=== PATIENT | female | born 1950 | race Caucasian/White ===

== ENCOUNTER 2017-01-27 14:10 | Inpatient (IN) | payer MEDICARE, OTHER ==
[2017-01-27 15:44] VITALS: BP 136/62; BMI 22.9
[2017-01-27] MEDS ORDERED: FLOVENT HFA 11012 GM INH (16:48)
[2017-01-27] MEDS ORDERED: AMBIEN10 MG PO (16:48)
[2017-01-27] MEDS ORDERED: DURAGESIC1 PATCH .7 TRANSDERM (16:49)
[2017-01-27] MEDS ORDERED: PREDNISONE20 MG PO (16:50)
[2017-01-27] MEDS ORDERED: EMLA CREAM 30 G30 G1 TOPICAL (16:53)
[2017-01-27] MEDS ORDERED: ONCOLOGY MOUTHWA5 ML PO (16:55)
[2017-01-27] MEDS ORDERED: PROAIR HFA8.5 GM INH (16:56)
[2017-01-27] MEDS ORDERED: CARAFATE1 G/10 ML PO (16:57)
[2017-01-27] MEDS ORDERED: HYDROCODONE-APA1 TAB PO (16:57)
[2017-01-27] MEDS ORDERED: PLAVIX75 MG PO (16:58)
[2017-01-27] MEDS ORDERED: CELEXA20 MG PO (16:58)
[2017-01-27] MEDS ORDERED: SINGULAIR10 MG PO (16:59)
[2017-01-27] MEDS ORDERED: ALBUTEROL2.5 MG/3 M INH (17:00)
[2017-01-27] MEDS ORDERED: OMEPRAZOLE20 M1 PO (17:00)
[2017-01-27] MEDS ORDERED: CRESTOR20 MG PO (17:01)
[2017-01-27] MEDS ORDERED: BAYER CHEWABLE81 MG PO (17:01)
[2017-01-27] MEDS ORDERED: NORVASC5 MG PO (17:01)
[2017-01-27] MEDS ORDERED: SPIRIVA18 MCG INH (17:03)
[2017-01-27] MEDS ORDERED: FLINTSTONE1 TAB.CHEW PO (17:03)
--- NOTE | 2017-01-27 17:20 | NUR ---
PATIENT IS ADMITTED TO [facility]IDENT[facility] SHE ARRIVES VIA AMBULANCE WITH TWO EMS STAFF. APPARENTLY PATIENT HAD TO HAVE A NAILING OF HER RIGHT HUMURUS ON THE December AND WHEN SHE WAS OUT OF SURGERY THE STAFF HAD TO QUESTION HER ABOUT DEPRESSION AND SUICIDE AFTER THE M.D. 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 SHE THEN SAID SHE WANTED TO KILL HERSELF BY WAY OF TAKING PILLS AND IF THAT IS NOT AVAILABLE THEN SHE WOULD TAKE A KNIFE AND CUT HERSELF. PATIENT DOES RELAY THIS TO ME, BUT SHE SAYS "I WOULD NEVER DO IT, I WAS UPSET AND DISTRAUGHT BECAUSE I ASKED THE DR. YOU'RE KIDDING ME" AND SHE SAYS THE DR. SMILED AND WALKED OUT THE DOOR. PATIENT DOES HAVE A SHOULDER AIR STRIP AND A SLING TO THE RIGHT ARM. SHE ALSO HAS A PORT TO LEFT UPPER CHEST. SHE HAS SOME FAINT BRUISES TO HER LEFT OUTER CALF, BUT SHE IS TAKING PLAVIX AND ASA AND SHE SAYS SHE BRUISES WITH THE LEAST TOUCH. PATIENT'S SPOUSE IS HERE AND HE IS ATTENTIVE AND KIND, PATIENT DID ASK HIM TO LEAVE WHEN THE SUICIDE QUESTIONS DID COME UP, BUT SHE SAYS SHE DENIES S.I. AND SHE SAYS SHE CONTRACTS FOR NO SELF HARM AND SHE WANTS TO HURRY UP AND GET OUT OF HERE TO GET HER TREATMENTS STARTED. PATIENT DOES ADMIT TO GETTING IRRITABLE AND ANGRY EASILY AT HER SPOUSE. SHE WANTS TO ASK THE MEDICAL DR. ABOUT TAKING A FLU INJECTION AND IF SHE SHOULD CONTINUE HER ALLERGY INJECTIONS WHILE GOING THROUGH RADIATION AND OR CHEMO.
[2017-01-27 19:52] VITALS: BP 133/58
--- NOTE | 2017-01-27 23:38 | NUR ---
B) States does not really relate to most of the peers here as many are very confused. Is oriented to person, place, time and situation. Did express sadness over learning of her cancer diagnosis but has had time to let the news sink in now. Continues to wear a right arm sling post recent shoulder surgery. States had been waiting all day for pain medication so the pain level got up to 10/10. Was given Ativan 0.5mg PRN and [place] tab PRN @2118, with good effect, went down to 4/10 by 2199. Refused to change the Fentanyl patch, states the first 24 hours was okay but then she felt it was too strong so insisted on leaving the current patch on for now. States she is still getting some benefits from it. I) Evaluate current mental status, encourage to verbalize feelings, educate on adaptive coping skills to deal with terminal illness diagnosis, assist in recognizing her support system and strengths, promote safety, administer medications as ordered. R) Denies suicidal ideation or plans, admits to depression but has a new found determination to pursue cancer treatments. States she would never take her own life. P) Continue to monitor per plan of care.
[2017-01-28 05:53] LABS: BASOPHILS 0.1 % (0-2); EOSINOPHILS 0 % (0-7); HEMATOCRIT 36.1 % (36.0-48.0); HEMOGLOBIN 11.4 g/dL (12-16); IMMATURE GRANULOCYTES 0.7 % (0-5); LYMPHOCYTES 3.9 % (15-50); MCH 28.9 pg (26.0-34.0); MCHC 31.6 g/dL (31.0-37.0); MCV 91.4 fL (80.0-100.0); MEAN PLATELET VOLUME 9.1 fL (7.4-10.4); MONOCYTES 6.1 % (2-11); NEUTROPHILS 89.2 % (40-80); PLATELET COUNT 296 10x3/uL (130-400); RBC 3.95 10x6/uL (4.00-5.40); RDW 14.5 % (11.5-14.5); WBC 14.1 10x3/uL (4.8-10.8)
[2017-01-28 06:08] LABS: HEMOGLOBIN A1C 5.9 % (4.8-6.0)
[2017-01-28 06:40] LABS: ALBUMIN 2.5 g/dL (3.4-5.0); ALKALINE PHOSPHATASE 204 U/L (46-116); ALT (SGPT) 53 U/L (10-68); CALC OSMOLALITY 286 mosm/kg (275-300); CALCIUM 11.4 mg/dL (8.5-10.1); CARBON DIOXIDE 28.8 mmol/L (21.0-32.0); CHLORIDE - SERUM 106 mmol/L (98-107); CHOL - HDL RATIO 2.8 ratio (2.3-4.1); CHOLESTEROL, TOTAL 121 mg/dL (0-200); CREATININE - SERUM 0.7 mg/dL (0.6-1.3); GLUCOSE 143 mg/dL (74-106); HDL CHOLESTEROL 43 mg/dL (32-96); LDL CHOLESTEROL 63 mg/dL (0-100); LDL-HDL RATIO 1.5 ratio (1.5-3.5); POTASSIUM - SERUM 4.1 mmol/L (3.5-5.1); PROTEIN - SERUM 5.3 g/dL (6.4-8.2); SODIUM 142 mmol/L (136-145); THYROID STIMULATING HORMONE 0.08 uIU/mL (0.36-3.74); TRIGLYCERIDE 79 mg/dL (30-200); UREA NITROGEN 19 mg/dL (7-18); eGFR NON AFRICAN AMERICAN 88 mL/min (90-120)
[2017-01-28 07:30] VITALS: BP 116/66
[2017-01-28 10:41] VITALS: BMI 22.8
--- NOTE | 2017-01-28 11:55 | NUR ---
B) PATIENT IS AWAKE AND ALERT, SHE IS CONVERSING AND DOING WELL TO INTERACT WITH STAFF AND PEERS. PATIENT DOES HAVE A SLING ON HER RIGHT ARM FOR A RECENT NAILING TO HER HUMURUS. PATIENT AMBULATES INDEPENDENTLY, SHE IS ORIENTED X3, SHE DENIES S.I. AT THIS TIME. SHE SAYS SHE IS ALWAYS DEPRESSED, BUT SHE WANTS TO LIVE. I) PROVIDE PRESCRIBED MEDS AND ENCOURAGE PATIENT TO VERBALIZE HER THOUGHTS AND FEELINGS. R) PATIENT IS COMPLIANT WITH MEDS. P) CONTINUE POC.
[2017-01-28 20:31] VITALS: BP 119/67
--- NOTE | 2017-01-29 01:06 | NUR ---
B) Compliant with wearing right arm sling post shoulder surgery. Drsg C/D/I to shoulder. Flat affect, depressed, feeling down this evening. I) Assess mental status, promote safety, monitor for changes in mood and behavior, offer time for 1:1 verbal intervention, assist in working through grief in relation to terminal illness, give medications as ordered. R) Alert and oriented x 4. Denies SI or suicidal plan. Wants to get on with cancer treatments. Missing family. Sad and depressed. P) Monitor per plan of care.
[2017-01-29 06:16] LABS: RAPID PLASMA REAGIN Non Reactive (Non Reactive)
[2017-01-29 08:00] VITALS: BP 97/45
--- NOTE | 2017-01-29 08:01 | NUR ---
LATE ENTRY FROM 01/28 SW MET WITH PT'S , NAHUM. PT STATED SHE WANTED TO GO HOME TODAY. SW DISCUSSED THE BENEFITS WITH STAYING ON THE UNIT TO ENSURE STABILIZATION AND DECREASED DEPRESSION. PT AND AGREED IT WOULD BE BEST FOR HER TO STAY ON THE UNIT UNTIL THE MD RELEASES HER.
[2017-01-29 08:18] VITALS: BMI 22.7
--- NOTE | 2017-01-29 08:20 | NUR ---
PT SHOWED SOME CONFUSION THIS MORNING. ORIENTED TO PERSON, PLACE, AND SITUATION BUT SHE THOUGHT IT WAS 1996. REORIENTED PT TO CURRENT ENVIORNMENT. PT DENIES SI OR DEPRESSION. SHE CONTINUES TO HAVE FLAT AFFECT AND POOR EYE CONTACT. RIGHT SHOULDER SLING IN PLACE. PT HAS PORT IN LEFT CHEST AREA. PT AND FAMILY STATED THAT IT HAS NOT BEEN ACCESSED RECENTLY. FALL PRECAUTIONS MAINTAINED. WILL CONTINUE TO MONITOR AND CONTINUE WITH PLAN OF CARE.
[2017-01-29 08:21] LABS: FOLATE (FOLIC ACID) - SERUM 12.9 ng/mL (>3.0); VITAMIN D 25 HYDROXY 38.8 ng/mL (30.0-100.0)
[2017-01-29 19:30] VITALS: BP 96/56
--- NOTE | 2017-01-29 21:52 | PN ---
PATIENT:BRAYDON YO MEDICAL RECORD: [id number] LOCATION:[facility] [address] ADMISSION DATE: 01/27/17 PROGRESS NOTE DATE OF SERVICE: 01/29/2017 SUBJECTIVE: No new complaint. OBJECTIVE: The patient has been somewhat avoidant and withdrawn. Affect tends to be very flat. She is tolerating medication overall. She is agreeable to remaining in the hospital over the weekend. On exam, mood is euthymic. Affect is constricted. The patient denies suicidal intent. Sensorium unchanged. ASSESSMENT: No change in diagnosis. PLAN: 1. Maintain current medications. 2. Continue supportive therapy. TRANSINT:[id number] Voice Confirmation ID: [id number] DOCUMENT ID: [id number] REINA LAZO III, MD at 2152 CC: [id number] DICTATION DATE: 01/29/17 1305 BILLING CLERK: 01/29/17 1323 ADM IN [place] [id number] [place] [address]
--- NOTE | 2017-01-30 00:01 | NUR ---
RECEIVED IN BEDROOM. RESTING IN BED EYES OPEN. ALERT AND ORIENTED. CALM AND COOPERATIVE WITH CARE AND ASSESSMENTS. DENIES THOUGHTS OF SELF HARM. ENCOURAGE TO EXPRESS NEEDS. CONTINUE PLAN OF CARE
[2017-01-30 16:04] VITALS: BP 133/61
--- NOTE | 2017-01-30 16:39 | NUR ---
VISITING WITH FAMILY.SMILING.DENIES THOUGHTS OF HARMING SELF.IS AMBULATORY.COMPLIANT WITH STAFF AND MEDS.WILL CONTINUE WITH PLAN OF CARE,MONITOR FOR CHANGES AND SAFETY.
[2017-01-30 19:30] VITALS: BP 106/68
--- NOTE | 2017-01-30 21:53 | NUR ---
RECEIVED IN BEDROOM. RESTING IN BED WITH EYES CLOSED. RESPONDS TO VOICE. STATES RIGHT SHOULDER PAIN OF 6 PRN NORCO 10 GIVEN. CALM AND COOPERATIVE WITH CARE AND ASSESSMENTS. DENIES THOUGHTS OF SELF HARM. ENCOURAGE TO EXPRESS NEEDS. RESTING QUIETLY IN BED AT THIS TIME. CONTINUE PLAN OF CARE
--- NOTE | 2017-01-31 05:02 | PN ---
PATIENT:BRAYDON YO MEDICAL RECORD: [id number] LOCATION:[facility] [place] ADMISSION DATE: 01/27/17 PROGRESS NOTE DATE OF SERVICE: 01/30/2017 SUBJECTIVE: No new complaint. OBJECTIVE: The patient continues to be somewhat reclusive and avoidant. However, she is cooperative with staff. She is tolerating medications well. On exam, mood is mildly dysphoric. Affect is bland and somewhat constricted. Speech is low in volume, but otherwise fluent. Content of thought is negative for suicidal ideation. Sensorium shows no change. ASSESSMENT: No change in diagnosis. PLAN: 1. Maintain current medications. 2. Continue supportive therapy. TRANSINT:[id number] Voice Confirmation ID: [id number] DOCUMENT ID: [id number] REINA LAZO III, MD at 0502 CC: [id number] DICTATION DATE: 01/30/17 0950 AIR CARRIER MAINTENANCE INSPECTOR: 01/30/17 1148 ADM IN [place] [id number] [place] [id number]
[2017-01-31 08:05] VITALS: BP 112/54
--- NOTE | 2017-01-31 18:30 | NUR ---
AMBULATORY,COMPLIANT WITH MEDS AND STAFF.WILL CONTINUE WITH PLAN OF CARE,MONITOR FOR CHANGES AND SAFETY.IS ORIENTED X 3.DENIES ANY THOUGHTS OF HARMING SELF.
[2017-01-31 20:30] VITALS: BP 110/46
--- NOTE | 2017-01-31 21:25 | NUR ---
RECEIVED IN BEDROOM. LAYING IN BED WITH EYES CLOSED. RESPONDS TO VOICE. CALM AND COOPERATIVE WITH CARE AND ASSESSMENTS. DENIES THOUGHTS OF SELF HARM. ENCOURAGE TO EXPRESS NEEDS. RESTING IN BED EYS CLOSED AT THIS TIME. CONTINUE PLAN OF CARE
[2017-02-01 09:27] LABS: APPEARANCE CLEAR (CLEAR); BACTERIA FEW /hpf (NONE SEEN); BILIRUBIN NEGATIVE (NEGATIVE); COLOR YELLOW (YELLOW); EPITHELIAL CELLS 0-5 /hpf (0-5); GLUCOSE NEGATIVE (NEGATIVE); KETONE NEGATIVE (NEGATIVE); NITRITE NEGATIVE (NEGATIVE); PROTEIN NEGATIVE (NEGATIVE); UROBILINOGEN NORMAL (NORMAL); WHITE CELLS - URINE OCC /hpf (0-5)
--- NOTE | 2017-02-01 11:38 | NUR ---
SW CALLED PT'S DTR, MANDEEP, DUE TO NOT BEING ABLE TO CONTACT PT'S , NAHUM. PT IS SET TO DISCHARGE AT 230PM. PT HAS BEEN REFERRED TO [facility]. SW REPORTED PT LOSING DENTURES. PT'S DTR VOICED UNDERSTANDING OF DISCUSSION AND STATED SHE WOULD TRY TO GET A HOLD OF HER FATHER.
[2017-02-01] MEDS ORDERED: EFFEXOR50 MG PO (12:07)
[2017-02-01 12:18] VITALS: BP 128/58
--- NOTE | 2017-02-01 12:26 | NUR ---
B) PATIENT IS SLEEPY TODAY SHE DENIES ANY S.I., SHE DOES SAY SHE IS DEPRESSED. SHE IS NOT TALKING TO ANYONE AND SHE IS SLEEPING MOST OF THE AM. SHE DOES WEAR A SLING ON HER RIGHT ARM SHE HAS HAD FX REPAIR (NAILING TO RIGHT HUMERUS) PATIENT AMBULATES, BUT IS A BIT UNSTEADY THIS AM. I) PROVIDE PRESCRIBED MEDS. R) PATIENT IS COMPLIANT WITH MEDS. P) CONTINUE POC.
--- NOTE | 2017-02-01 13:44 | NUR ---
FAXED D/C ORDER AND MEDICATION LIST TO DR. CAMACHO, CALLED EFFEXOR INTO [facility] IN [place], [place]. PATIENT IS READY TO D/C. SPOUSE IS SUPPOSED TO PICK HER UP AT 1430.
--- NOTE | 2017-02-01 16:25 | NUR ---
SW SPOKE WITH ABOUT DISCHARGE PLANS TODAY. SW REFERRED PT TO [facility]. PT WILL FOLLOW UP WITH PCP IN TWO WEEKS. PT'S STATED HE WANTED TO SCHEDULE APPOINTMENT.
--- NOTE | 2017-02-02 10:17 | PN ---
PATIENT:BRAYDON YO MEDICAL RECORD: [id number] LOCATION:[facility] [address] ADMISSION DATE: 01/27/17 PROGRESS NOTE DATE OF SERVICE: 02/01/2017 SUBJECTIVE: No new complaint. OBJECTIVE: The patient continues to be slightly confused, but overall is much better. The family wants to have the patient return home with in-home assistance. She will have follow up at [facility]. PHYSICAL EXAMINATION: On exam, mood is euthymic. Affect is bland. Speech is terse. Content of thought focuses on somatic concerns. Sensorium is unchanged. ASSESSMENT: No change in diagnosis. PLAN: Anticipate discharge later today. TRANSINT:[id number] Voice Confirmation ID: [id number] DOCUMENT ID: [id number] REINA LAZO III, MD at 1017 CC: [id number] DICTATION DATE: 02/01/[address] SUPERVISOR: 02/01/17 1416 DIS IN 02/01/17 [place] [id number] [place] [address]
--- NOTE | 2017-02-09 13:05 | PSY ---
PATIENT NAME:BRAYDON YO MEDICAL RECORD: [id number] : 48 LOCATION:[facility] [id number] ADMISSION DATE: 01/27/17 ACCOUNT: [id number] PSYCHIATRIC EVALUATION DATE OF EVALUATION: 01/28/17 PSYCHIATRIC EVALUATION IDENTIFYING DATA: The patient is 66 years old and she is admitted to the hospital on a voluntary basis. CHIEF COMPLAINT: Suicidal thoughts. HISTORY OF PRESENT ILLNESS: The patient is a very nice lady who is unfortunately quite sick. She was diagnosed with lung cancer in May of this year, underwent some treatments and she says she was told she was in remission. A few weeks ago, she has had a recurrence of the disease and lobectomy and radiation have not really worked and in fact, the disease has recurred in her shoulder and she has had to have some pinning to hold the bone together. A few days ago, she was told that she has metastatic disease to both the liver and the brain. She apparently made statements to the oncology staff that she was going to kill herself and when asked about this, she said she would cut her wrist or throat or take an overdose of pills or do a combination of this. They actually kept her in the hospital at [facility] a few days extra trying to find placement for her. I believe we were not able to take admissions because of some staffing issues at that time and now today she is here and says that it is all a big misunderstanding and that she really would not want to hurt herself. She freely admits she made these statements, but says she was just upset and frustrated. She says that even though she does not go to restorationism, she is a Confucianism and believes that it would be wrong to hurt herself and that she certainly wants to fight this disease as long as she can. PAST MEDICAL HISTORY: Significant for coronary artery disease, hypertension, COPD, emphysema and of course lung cancer with metastatic disease to the brain, liver, and bone. PAST PSYCHIATRIC HISTORY: Significant for brief hospitalization 15 years ago when she says she had "a nervous breakdown." Apparently, she was under a lot of stress, trying to care of her family members. ALLERGIES: TRAMADOL AND LISINOPRIL. MEDICATIONS: Current medications include Ambien, Flovent, Duragesic, prednisone, hydrocodone, Celexa, Plavix, Singulair, Proventil, Norvasc, Crestor, aspirin, Spiriva and multivitamins. FAMILY HISTORY: Negative for psychiatric disease by her report. SOCIAL HISTORY: The patient is and has adult children and grandchildren. She does have a history of cigarette smoking, but denies that she has ever had problems with drugs or alcohol. MENTAL STATUS EXAMINATION: The patient is awake, alert and oriented to person, place, time and situation. Her mood is depressed. Her affect is constricted. Thought processes are circumstantial. Memory, concentration and abstraction abilities are moderately impaired and she denies that she would actively seek to harm herself or others as well as overt psychotic symptoms. ASSETS: Supportive family members. LIABILITIES: Limited insight. DIAGNOSTIC IMPRESSION: AXIS I: Major depression, severe, recurrent, without psychotic features. AXIS II: None. AXIS III: Chronic obstructive pulmonary disease, hypertension, coronary artery disease, widely metastatic lung cancer. AXIS IV: Moderate stressors. AXIS V: Global assessment of functioning is 45. PLAN: At this time, the patient is admitted to the hospital secondary to depressive symptoms with recent suicidal thoughts. She now says that she was just frustrated and did not mean what she said, however, she certainly did alarm her and the staff at the other hospital. She is willing to stay and let me treat her with antidepressant medication and I have started her on Effexor. She is willing to go to outpatient psychiatric followup and I would certainly recommend that be part of her discharge planning. Her long-term prognosis is guarded. TRANSINT:[id number] Voice Confirmation ID: [id number] DOCUMENT ID: [id number] DAQUAN POLANCO MD at 1305 CC: [id number] DICTATION DATE: 01/28/17 1410 TEACHER: 01/28/17 1444 DIS IN 02/01/17 [place] [id number] [place] [id number]
--- NOTE | 2017-02-18 09:56 | DS ---
PATIENT:BRAYDON YO :48 MEDICAL RECORD: [id number] DISCHARGE SUMMARY ADMISSION DATE: 01/27/17 DISCHARGE DATE: 02/01/17 IDENTIFYING DATA: The patient is 66 years old and she was admitted to the hospital on a voluntary basis secondary to suicidal thoughts. The patient is a very nice lady who is quite sick. She has metastatic lung cancer and received some bad news about the spread of the disease recently. She has made some statements to her doctor and to others about wanting to kill herself by overdosing on pills. She says that, at that time, she was not sure if she meant it, but she does not mean it now, although she endorses numerous vegetative depressive symptoms. HOSPITAL COURSE: The patient was admitted to the hospital and evaluated from both medical, psychological, and social standpoint. She was treated with antidepressant medicine in the usual [place], therapies, and activities. She did show improvement and was subsequently transitioned out of the hospital. DISCHARGE DIAGNOSES: AXIS I: Major depression, severe, recurrent, without psychotic features. AXIS II: None. AXIS III: Chronic obstructive pulmonary disease, hypertension, coronary artery disease, and metastatic lung cancer. AXIS IV: Moderate stressors. AXIS V: Global assessment of functioning is 50. PLAN: At the time of discharge, the patient was depressed but not suicidal. She was not out of touch with reality. She has an extremely poor long-term prognosis secondary to her metastatic cancer. From a mental health standpoint, it is certainly understanding that she is angry and depressed. She has been referred to ____ counseling for therapy and continued medication management. TRANSINT:[id number] Voice Confirmation ID: [id number] DOCUMENT ID: [id number] DAQUAN POLANCO MD at 0956 CC: [id number] DICTATION DATE: 02/17/17 1257 COOKING INSTRUCTOR: 02/17/17 1350 DIS IN 02/01/17 [place] [id number] [place] [id number]
== END 2017-02-01 14:50 | disposition home or self-care (01) | DRG 885 ==
LOC: D.PSYCH 14:10
PROVIDERS: ADMIT Psychiatry & Neurology Psychiatry
DX: F33.2 Major depressive disorder, recurrent severe without psychotic features (principal); C34.90 Malignant neoplasm of unspecified part of unspecified bronchus or lung; C78.7 Secondary malignant neoplasm of liver and intrahepatic bile duct; C79.51 Secondary malignant neoplasm of bone; C79.31 Secondary malignant neoplasm of brain; I10 Essential (primary) hypertension; J44.9 Chronic obstructive pulmonary disease, unspecified; I25.10 Atherosclerotic heart disease of native coronary artery without angina pectoris; E78.5 Hyperlipidemia, unspecified; G47.00 Insomnia, unspecified; K21.9 Gastro-esophageal reflux disease without esophagitis; G89.3 Neoplasm related pain (acute) (chronic); M84.421S Pathological fracture, right humerus, sequela; J30.9 Allergic rhinitis, unspecified; Z87.891 Personal history of nicotine dependence